=== PATIENT | male | born 1955 | race Caucasian/White ===

== ENCOUNTER 2019-01-20 18:19 | Emergency (ER) | payer OTHER ==
[2019-01-20 20:00] LABS: Basophils % (A) 0 %; Eosinophils # (A) 0.1 k/uL (0-0.7); Eosinophils % (A) 1 %; HCT 40.3 % (39.0-53.0); HGB 13.5 gm/dL (13.0-17.5); Lymphocytes % (A) 10 %; MCH 29.2 pg (25.0-35.0); MCHC 33.5 g/dL (31.0-37.0); MCV 86.9 fL (80.0-100.0); Mean Platelet Volume 6.5; Monocytes # (A) 0.4 k/uL (0-1.0); Monocytes % (A) 4 %; Neutrophils # (A) 8.9 k/uL (1.3-7.7); Neutrophils % (A) 85 %; Platelet Count 287 k/uL (150-450); RBC 4.63 m/uL (4.30-5.90); RDW 13.3 % (11.5-15.5); WBC 10.5 k/uL (3.8-10.6)
[2019-01-20 20:05] LABS: Amorphous Sediment,Urine Rare /hpf; Appearance,Urine Cloudy (Clear); Bilirubin,Urine Negative (Negative); Blood,Urine Trace (Negative); Color,Urine Yellow; Glucose,Urine (UA) Negative (Negative); Ketones,Urine Negative (Negative); Leukocyte Esterase,Urine Negative (Negative); Mucus,Urine Rare /hpf; Nitrite,Urine Negative (Negative); Protein,Urine Trace (Negative); Specific Gravity,Urine 1.013 (1.001-1.035); Urobilinogen,Urine <2.0 mg/dL (<2.0); WBC,Urine 1 /hpf (0-5)
[2019-01-20 20:09] LABS: ALT 24 U/L (21-72); AST 29 U/L (17-59); African American GFR (CKD) >90 (>60 ml/min/1.73 sqM); Albumin 4.4 g/dL (3.5-5.0); Alkaline Phosphatase 78 U/L (38-126); Anion Gap 9 mmol/L; Blood Urea Nitrogen 14 mg/dL (9-20); Calcium 8.8 mg/dL (8.4-10.2); Carbon Dioxide 26 mmol/L (22-30); Chloride 104 mmol/L (98-107); Glucose 103 mg/dL (74-99); Potassium 4.5 mmol/L (3.5-5.1); Sodium 139 mmol/L (137-145); Total Bilirubin 0.3 mg/dL (0.2-1.3); Total Protein 7.1 g/dL (6.3-8.2)
--- NOTE | 2019-01-20 21:11 | ED ---
Dizziness HPI - General Chief Complaint: Dizziness Stated Complaint: lightheaded/neck pain Time Seen by Provider: 01/20/19 21:10 Source: patient Mode of arrival: wheelchair Limitations: no limitations - History of Present Illness Initial Comments: Peter is a 62yo male with PMH of seizure disorder who presents to the ER today for evaluation of seizure aura. Patient reports that he has been out of his antiepileptic medications for approximately 3 weeks. He reports that due to insurance changes he had to get a new doctor he saw the doctor but reports he has not been able to get his medications filled at his pharmacy. He reports that this evening he was driving from his home to his oslof[place]-vhj[place] when he began feeling somewhat lightheaded and woozy. Patient reports he has felt like this before when he was about to have a seizure. He reports that he was less than a mile from his bkcfwm-gx[place]jxc[place] house so he got there and contacted his nraeexk-tn-ldx to bring him to the emergency department for evaluation. Patient's last seizure was a few months ago. He does not have frequent seizures. Patient states that he takes Dilantin and phenobarbital. Patient denies any fevers, chills, chest pain, palpitations, shortness of breath. He did not have a seizure he does not have any amnesia to the events of the afternoon. Patient is scheduled to establish care with a new neurologist on January 27. - Related Data Previous Rx's Medication Instructions Recorded Phenytoin Sodium Extended 200 mg PO BID #60 capsule 01/20/19 [Dilantin] Allergies Allergy/AdvReac Type Severity Reaction Status Date / Time No Known Allergies Allergy Verified 01/20/19 21:18 Review of Systems ROS Statement: Those systems with pertinent positive or pertinent negative responses have been documented in the HPI. ROS Other: All systems not noted in ROS Statement are negative. Past Medical History Past Medical History: Seizure Disorder History of Any Multi-Drug Resistant Organisms: None Reported Past Surgical History: No Surgical Hx Reported Past Psychological History: No Psychological Hx Reported Smoking Status: Never smoker Past Alcohol Use History: None Reported, Rare Past Drug Use History: None Reported General Exam - General Exam Comments Initial Comments: Physical Exam GENERAL: Patient is well-developed and well-nourished. Patient is nontoxic and well-hydrated and is in no distress. HENT: Normocephalic, Atraumatic. EYES: PERRL, EOMI PULMONARY: Unlabored respirations. No audible rales rhonchi or wheezing was noted. CARDIOVASCULAR: There is a regular rate and rhythm without any murmurs gallops or rubs. ABDOMEN: Soft and nontender with normal bowel sounds. SKIN: Skin is clear with no lesions or rashes and otherwise unremarkable. : Deferred NEUROLOGIC: Patient is alert and oriented x3. Moving all extremities spontaneously MUSCULOSKELETAL: Normal extremities with adequate strength and full range of motion. No lower extremity swelling or edema. No calf tenderness. PSYCHIATRIC: Normal psychiatric evaluation Limitations: no limitations Course Vital Signs 01/20/19 01/20/19 01/20/19 18:29 22:25 23:40 Temperature 98.2 F 97.8 F Pulse Rate 67 64 67 Respiratory 20 18 18 Rate Blood Pressure 189/96 201/111 185/109 O2 Sat by Pulse 97 97 96 Oximetry 01/21/19 00:12 Temperature 97.8 F Pulse Rate 64 Respiratory 18 Rate Blood Pressure 159/98 O2 Sat by Pulse 96 Oximetry EKG Findings - EKG Comments: EKG Findings:: EKG was obtained due to complaint of lightheadedness. EKG was obtained at 7:34 PM, rate is 68 rhythm is sinus there is normal axis there are normal intervals, MT 144, QRS 6, QT/QTc 438/465 there are no acute ST elevations or depressions is no evidence of acute ischemia or infarction. Medical Decision Making - Medical Decision Making The patient was seen and evaluated history is obtained from the patient and family member at bedside This 63-year-old gentleman with history of seizure disorder hypertension is currently been without medications for 3 weeks duration due to miscommunication between his new primary care provider and pharmacy Patient reports he began to feel an aura like he was could have a seizure today, he did not have a seizure. He reports he is feeling better now. He is requesting have a refill of his daily. States that he'll get his phenobarbital from his position as prescribed because he knows it is a controlled substance. First dose of Dilantin was ordered here in the emergency department a prescription was provided. Upon discharge patient was noted to be hypertensive. Patient will follow up with his primary care physician for refill on his antihypertensives and was well because he does not recall which medication he was on we do not have any record of it and I do not want to initiate new medications. Was treated with a single dose of oral clonidine and his blood pressure improved. - Lab Data Result diagrams: 01/20/19 19:39 01/20/19 19:39 Lab Results 01/20/19 01/20/19 01/20/19 Range/Units 19:39 19:39 19:40 WBC 10.5 (3.8-10.6) k/uL RBC 4.63 (4.30-5.90) m/uL Hgb 13.5 (13.0-17.5) gm/dL Hct 40.3 (39.0-53.0) % MCV 86.9 (80.0-100.0) fL MCH 29.2 (25.0-35.0) pg MCHC 33.5 (31.0-37.0) g/dL RDW 13.3 (11.5-15.5) % Plt Count 287 (150-450) k/uL Neutrophils % 85 % Lymphocytes % 10 % Monocytes % 4 % Eosinophils % 1 % Basophils % 0 % Neutrophils # 8.9 H (1.3-7.7) k/uL Lymphocytes # 1.0 (1.0-4.8) k/uL Monocytes # 0.4 (0-1.0) k/uL Eosinophils # 0.1 (0-0.7) k/uL Basophils # 0.0 (0-0.2) k/uL Sodium 139 (137-145) mmol/L Potassium 4.5 (3.5-5.1) mmol/L Chloride 104 (98-107) mmol/L Carbon Dioxide 26 (22-30) mmol/L Anion Gap 9 mmol/L BUN 14 (9-20) mg/dL Creatinine 0.91 (0.66-1.25) mg/dL Est GFR (CKD-EPI)AfAm >90 (>60 ml/min/1.73 sqM) Est GFR (CKD-EPI)NonAf 89 (>60 ml/min/1.73 sqM) Glucose 103 H (74-99) mg/dL Calcium 8.8 (8.4-10.2) mg/dL Total Bilirubin 0.3 (0.2-1.3) mg/dL AST 29 (17-59) U/L ALT 24 (21-72) U/L Alkaline Phosphatase 78 (38-126) U/L Total Protein 7.1 (6.3-8.2) g/dL Albumin 4.4 (3.5-5.0) g/dL Urine Color Yellow Urine Appearance Cloudy (Clear) Urine pH 7.0 (5.0-8.0) Ur Specific [place] 1.013 (1.001-1.035) Urine Protein Trace H (Negative) Urine Glucose (UA) Negative (Negative) Urine Ketones Negative (Negative) Urine Blood Trace H (Negative) Urine Nitrite Negative (Negative) Urine Bilirubin Negative (Negative) Urine Urobilinogen <2.0 (<2.0) mg/dL Ur Leukocyte Esterase Negative (Negative) Urine WBC 1 (0-5) /hpf Amorphous Sediment Rare H (None) /hpf Urine Mucus Rare H (None) /hpf Disposition Clinical Impression: Encounter for medication refill, HTN (hypertension) Disposition: HOME SELF-CARE Condition: Stable Instructions (If sedation given, give patient instructions): Phenytoin (By mouth) Prescriptions: Phenytoin Sodium Extended [Dilantin] 200 mg PO BID #60 capsule Is patient prescribed a controlled substance at d/c from ED?: No Referrals: Paul Nuñez MD [Primary Care Provider] - 1-2 days
[2019-01-20] MEDS ORDERED: PHENYTOIN SODIUM EXTENDED 100 MG CAP PO STA (21:39)
[2019-01-20] MEDS ORDERED: cloNIDine HCL 0.1 MG TAB PO STA (22:44)
[2019-01-20 22:58] VITALS: PULSE 64; RESP 18; TEMP 97.8
[2019-01-21 00:13] VITALS: BP 159/98
== END 2019-01-21 00:30 | disposition home or self-care (01) ==
LOC: EC 18:19
DX: Z76.0 Encounter for issue of repeat prescription (principal); I10 Essential (primary) hypertension; G40.909 Epilepsy, unspecified, not intractable, without status epilepticus
CPT/HCPCS: 36415; 80053; 81001; 85025; 93005; 99284

== ENCOUNTER 2019-06-11 09:50 | Emergency (ER) | payer OTHER ==
[2019-06-11 09:57] VITALS: RESP 18; TEMP 98.4
[2019-06-11] MEDS ORDERED: SODIUM CHLORIDE 0.9% 1,000 ML IV STA (10:07)
[2019-06-11] MEDS ORDERED: LORazepam 2 MG/ML INJ IV STA (10:07)
[2019-06-11] MEDS ORDERED: PHENYTOIN SODIUM INJ 1,000 MG in SODIUM CHLORIDE 0.9% 100 ML IVPB STA (10:09)
[2019-06-11] MEDS ORDERED: DIPH,PERTUS(ACELL)TETVAC-LF 0.5 ML VIAL IM ONE (10:13)
--- NOTE | 2019-06-11 10:14 | ED ---
Seizure HPI - General Chief Complaint: Seizure Stated Complaint: seizure Time Seen by Provider: 06/11/19 09:57 Source: patient, RN notes reviewed Mode of arrival: ambulatory Limitations: no limitations - History of Present Illness Initial Comments: 63-year-old male presented to emergency department via EMS for seizure at a restaurant. Patient reported to EMS that he has not had his medications in 3 weeks secondary to his physician retiring. Patient is unable to provide information to me at this time secondary to having current seizure. Patient is postictal. Patient reportedly was on Dilantin. Patient noted to have scalp laceration. No other obvious injuries. - Related Data Home Medications Medication Instructions Recorded Confirmed Lisinopril-Hctz 20-25 mg 1 tab PO DAILY 06/11/19 06/11/19 [Zestoretic 20-25] PHENobarbital 32.4 mg PO HS 06/11/19 06/11/19 Previous Rx's Medication Instructions Recorded Phenytoin Sodium Extended 200 mg PO BID #60 capsule 01/20/19 [Dilantin] Lisinopril [Zestril] 10 mg PO DAILY #30 tab 06/11/19 Phenytoin Sodium Extended 200 mg PO ONCE #120 capsule 06/11/19 [Dilantin] Allergies Allergy/AdvReac Type Severity Reaction Status Date / Time No Known Allergies Allergy Verified 06/11/19 10:08 Review of Systems ROS Statement: Those systems with pertinent positive or pertinent negative responses have been documented in the HPI. ROS Other: All systems not noted in ROS Statement are negative. Past Medical History Past Medical History: Seizure Disorder History of Any Multi-Drug Resistant Organisms: None Reported Past Surgical History: No Surgical Hx Reported Past Psychological History: No Psychological Hx Reported Smoking Status: Never smoker Past Alcohol Use History: None Reported, Rare Past Drug Use History: None Reported General Exam Limitations: no limitations General appearance: alert, in no apparent distress Head exam: Present: atraumatic, normocephalic. Absent: normal inspection (Laceration) Eye exam: Present: normal appearance, PERRL, EOMI. Absent: scleral icterus, conjunctival injection, periorbital swelling ENT exam: Present: normal exam, normal oropharynx, mucous membranes moist, TM's normal bilaterally Neck exam: Present: normal inspection, full ROM. Absent: tenderness, meningismus, lymphadenopathy Respiratory exam: Present: normal lung sounds bilaterally. Absent: respiratory distress, wheezes, rales, rhonchi, stridor Cardiovascular Exam: Present: normal rhythm, tachycardia, normal heart sounds. Absent: regular rate, systolic murmur, diastolic murmur, rubs, gallop, clicks GI/Abdominal exam: Present: soft, normal bowel sounds. Absent: distended, ten derness, guarding, rebound, rigid Neurological exam: Present: other (Patient was actively seizing, now postictal). Absent: alert, oriented X3, CN II-XII intact Skin exam: Present: warm, dry, intact, normal color. Absent: rash Course Vital Signs 06/11/19 06/11/19 06/11/19 09:52 10:15 12:00 Temperature 98.4 F Pulse Rate 131 H Respiratory 18 Rate Blood Pressure 181/134 200/88 145/82 O2 Sat by Pulse 98 Oximetry 06/11/19 12:26 Temperature Pulse Rate 88 Respiratory 18 Rate Blood Pressure 147/83 O2 Sat by Pulse 97 Oximetry Procedures - Laceration Laceration #1 Consent Obtained: verbal consent Indication: laceration Site: scalp Size (cm): 2 Description: linear Depth: simple, single layer Size of Sutures: other (Dermal bhavik) Number of Sutures: 3 Patient Tolerated Procedure: well, no complications Medical Decision Making - Medical Decision Making 63-year-old male presented for seizure. CT is unremarkable as far as endocrine hemorrhage or mass effect. No cervical fracture. Labs are consistent with s eizure. Patient has been off his medications will be refilled for Dilantin, blood pressure medication. He'll follow-up with Dr. Toribio his neurologist return parameters were discussed. - Lab Data Result diagrams: 06/11/19 10:05 06/11/19 10:05 Lab Results 06/11/19 06/11/19 Range/Units 10:05 10:05 WBC 12.2 H (3.8-10.6) k/uL RBC 5.07 (4.30-5.90) m/uL Hgb 15.6 (13.0-17.5) gm/dL Hct 47.0 (39.0-53.0) % MCV 92.7 (80.0-100.0) fL MCH 30.7 (25.0-35.0) pg MCHC 33.1 (31.0-37.0) g/dL RDW 12.7 (11.5-15.5) % Plt Count 422 (150-450) k/uL Neutrophils % 71 % Lymphocytes % 22 % Monocytes % 4 % Eosinophils % 1 % Basophils % 1 % Neutrophils # 8.6 H (1.3-7.7) k/uL Lymphocytes # 2.6 (1.0-4.8) k/uL Monocytes # 0.5 (0-1.0) k/uL Eosinophils # 0.1 (0-0.7) k/uL Basophils # 0.1 (0-0.2) k/uL Sodium 140 (137-145) mmol/L Potassium 4.6 (3.5-5.1) mmol/L Chloride 98 (98-107) mmol/L Carbon Dioxide 15 L (22-30) mmol/L Anion Gap 27 mmol/L BUN 13 (9-20) mg/dL Creatinine 1.32 H (0.66-1.25) mg/dL Est GFR (CKD-EPI)AfAm 66 (>60 ml/min/1.73 sqM) Est GFR (CKD-EPI)NonAf 57 (>60 ml/min/1.73 sqM) Glucose 167 H (74-99) mg/dL Calcium 10.6 H (8.4-10.2) mg/dL Total Bilirubin 0.6 (0.2-1.3) mg/dL AST 31 (17-59) U/L ALT 25 (21-72) U/L Alkaline Phosphatase 76 (38-126) U/L Total Protein 8.3 H (6.3-8.2) g/dL Albumin 5.3 H (3.5-5.0) g/dL - EKG Data EKG Comments: EKG interpreted by me at time: 14 normal sinus rhythm rate of 96 OR 166 QRS 110 QT/QTC 378/477 Disposition Clinical Impression: Generalized seizure, Scalp laceration Disposition: HOME SELF-CARE Condition: Stable Instructions (If sedation given, give patient instructions): Recurrent Seizures in Adults (ED) Additional Instructions: Please return to the Emergency Department if symptoms worsen or any other concerns. Prescriptions: Phenytoin Sodium Extended [Dilantin] 200 mg PO ONCE #120 capsule Lisinopril [Zestril] 10 mg PO DAILY #30 tab Is patient prescribed a controlled substance at d/c from ED?: No Referrals: Paul Nuñez MD [Primary Care Provider] - 1-2 days Time of Disposition: 12:36
[2019-06-11 10:35] LABS: Basophils # (A) 0.1 k/uL (0-0.2); Basophils % (A) 1 %; Eosinophils # (A) 0.1 k/uL (0-0.7); Eosinophils % (A) 1 %; HGB 15.6 gm/dL (13.0-17.5); Lymphocytes # (A) 2.6 k/uL (1.0-4.8); Lymphocytes % (A) 22 %; MCH 30.7 pg (25.0-35.0); MCHC 33.1 g/dL (31.0-37.0); MCV 92.7 fL (80.0-100.0); Monocytes # (A) 0.5 k/uL (0-1.0); Monocytes % (A) 4 %; Neutrophils # (A) 8.6 k/uL (1.3-7.7); Neutrophils % (A) 71 %; Platelet Count 422 k/uL (150-450); RBC 5.07 m/uL (4.30-5.90); RDW 12.7 % (11.5-15.5); WBC 12.2 k/uL (3.8-10.6)
[2019-06-11 10:45] LABS: Albumin 5.3 g/dL (3.5-5.0); Calcium 10.6 mg/dL (8.4-10.2); Potassium 4.6 mmol/L (3.5-5.1); Total Bilirubin 0.6 mg/dL (0.2-1.3); Total Protein 8.3 g/dL (6.3-8.2)
--- NOTE | 2019-06-11 11:27 | CT ---
EXAMINATION TYPE: CT brain viki huntley con DATE OF EXAM: 06/11/2019 COMPARISON: None HISTORY: seizure. posterior head laceration CT DLP: 1363.1 mGycm, Automated exposure control for dose reduction was used. CONTRAST: None CT of the brain is performed utilizing 3 mm thick sections through the posterior fossa and 3 mm thick sections through the remaining calvarium. Study is performed within 24 hours of arrival to the hospital. No abnormal hyperdensity is present to suggest an acute intracranial hemorrhage. No mass lesion is evident. No acute infarcts are evident. Ventricles and sulci are appropriate for the patient age. Paranasal sinuses and mastoid air cells within the yttah-zx-ieur are clear. Fractures are evident. There is soft tissue swelling over the right parietal vertex. IMPRESSIONS: 1. No acute intracranial process. 2. Superficial soft tissue swelling right parietal vertex. CT cervical spine. COMPARISON: None CT of the cervical spine is performed in the axial plane at 2 mm thick sections. Reconstructed image s in the coronal, and sagittal plane are reviewed on the computer. No acute fractures are evident. Vertebral body alignment is normal. Disc space narrowing is present C3-4 and C6-7. Vertebral body heights are preserved. No spinal canal stenosis is evident. Multilevel foraminal narrowing from uncovertebral joint hypertrophy is present. This may be more emelyn re in the upper cervical spine especially C3-4. Foraminal narrowing on the right at C2-3 appears emelyn re right C4-5 foraminal stenosis is present milder foraminal narrowing is in the lower cervical spine . IMPRESSIONS: 1. No acute osseous abnormality. 2. Degenerative changes including foraminal stenosis and loss of disc height discussed above
[2019-06-11 13:24] VITALS: BP 158/88; PULSE 89
== END 2019-06-11 13:24 | disposition home or self-care (01) ==
LOC: EC 09:50
DX: S01.01XA Laceration without foreign body of scalp, initial encounter (principal); G40.409 Other generalized epilepsy and epileptic syndromes, not intractable, without status epilepticus; Z23 Encounter for immunization; Z79.899 Other long term (current) drug therapy
CPT/HCPCS: 99284; 12001; 96365; 96375; 96361 ×2; 90471; 36415; 93005; 80053; 85025; 72125; 70450; 90715; J2060; J1165

== ENCOUNTER 2019-08-04 10:35 | Emergency (ER) | payer OTHER ==
[2019-08-04] MEDS ORDERED: SODIUM CHLORIDE 0.9% 500 ML 500 ML IV STA (11:09)
[2019-08-04] MEDS ORDERED: PENICILLIN V POTASSIUM 250 MG TAB PO STA (11:10)
--- NOTE | 2019-08-04 11:10 | ED ---
General Adult HPI - General Chief complaint: Nausea/Vomiting/Diarrhea Stated complaint: abd pain Time Seen by Provider: 08/04/19 10:48 Source: patient, RN notes reviewed, old records reviewed Mode of arrival: ambulatory Limitations: no limitations - History of Present Illness Initial comments: 63-year-old male patient past medical history of hypertension, seizure disorder presents to ED for chief complaint of nausea for the last 3 days. Denies any abdominal pain. Patient also reports some dental pain. Reports that he has poor dentition. Denies any chest pain or shortness of breath. Denies any complaints at this time. Denies any diarrhea. Systemic: Pt denies fatigue, fever/chills, rash. Pt denies weakness, night sweats, weight loss. Neuro: Pt denies headache, visual disturbances, syncope or pre-syncope. HEENT: Pt denies ocular discharge or irritation, otalgia, rhinorrhea, pharyngitis or notable lymphadenopathy. Cardiopulmonary: Pt denies chest pain, SOB, heart palpitations, dyspnea on exertion. Abdominal/GI: Pt denies abdominal pain, v/d. : Pt denies dysuria, burning w/ urination, frequency/urgency. Denies new onset urinary or bowel incontinence. MSK: Pt denies myalgia, loss of strength or function in extremities. Neuro: Pt denies new onset weakness, paresthesias. - Related Data Home Medications Medication Instructions Recorded Confirmed Lisinopril-Hctz 20-25 mg 1 tab PO DAILY 06/11/19 06/11/19 [Zestoretic 20-25] RX: PHENobarbital 32.4 mg PO HS 06/11/19 06/11/19 Previous Rx's Medication Instructions Recorded Phenytoin Sodium Extended 200 mg PO BID #60 capsule 01/20/19 [Dilantin] Phenytoin Sodium Extended 200 mg PO ONCE #120 capsule 06/11/19 [Dilantin] RX: Lisinopril [Zestril] 10 mg PO DAILY #30 tab 06/11/19 RX: Penicillin V Potassium [Pen 500 mg PO QID 7 Days #28 tablet 08/04/19 Vee K] Allergies Allergy/AdvReac Type Severity Reaction Status Date / Time No Known Allergies Allergy Verified 08/04/19 10:46 Review of Systems ROS Statement: Those systems with pertinent positive or pertinent negative responses have been documented in the HPI. ROS Other: All systems not noted in ROS Statement are negative. Past Medical History Past Medical History: Hypertension, Seizure Disorder History of Any Multi-Drug Resistant Organisms: None Reported Past Surgical History: No Surgical Hx Reported Past Psychological History: No Psychological Hx Reported Smoking Status: Never smoker Past Alcohol Use History: Rare Past Drug Use History: None Reported General Exam - General Exam Comments Initial Comments: Constitutional: NAD, AOX3, Pt has pleasant affect. HEENT: NC/AT, trachea midline, neck supple, no lymphadenopathy. Posterior pharynx non erythematous, without exudates. External ears appear normal, without discharge. Mucous membranes moist. Eyes PERRLA, EOM intact. There is no scleral icterus. No pallor noted. Poor dentition noted, mild erythema to gum on left lower jaw region. No drainage, no abscess. Cardiopulmonary: RRR, no murmurs, rubs or gallops, no JVD noted. Lungs CTAB in anterior and posterior barbosa. No peripheral edema. Abdominal exam: Abdomen soft and non-distended. Abdomen non-tender to palpation in all 4 quadrants. Bowel sounds active in LLQ. No hepatosplenomegaly. No ecchymosis Neuro: CN II-XII grossly intact. No nuchal rigidity. No raccon eyes, no grissom sign, no hemotympanum. No cervical spinal tenderness. MSK: No posterior calf tenderness bilaterally, homans sign negative bilaterally. Posterior tibialis and radial pulse +2 bilaterally. Sensation intact in upper and lower extremities. Full active ROM in upper and lower extremities, 5/5 stregnth. Limitations: no limitations Course Vital Signs 08/04/19 08/04/19 08/04/19 10:43 10:46 12:39 Temperature 98.1 F Pulse Rate 89 82 Respiratory 18 16 Rate Blood Pressure 184/113 194/103 191/111 O2 Sat by Pulse 97 95 Oximetry 08/04/19 12:50 Temperature Pulse Rate Respiratory Rate Blood Pressure 144/90 O2 Sat by Pulse Oximetry Medical Decision Making - Medical Decision Making 63-year-old male patient past medical history of hypertension, seizure disorder presents to ED for chief complaint of nausea for the last 3 days. Denies any abdominal pain. Patient also reports some dental pain. Reports that he has poor dentition. Denies any chest pain or shortness of breath. Denies any complaints at this time. Denies any diarrhea. Patient vital signs initially displayed hypertension. Denies any symptoms. Patient was administered antihypertensive. Physical exam splayed a mild amount of gum erythema along left lower jaw region. No drainage, no abscess. Laboratory investigations are non-impressive. KUB displayed nonspecific bowel gas pattern. EKG nonischemic. She feeling much improved with Zofran. Tolerating oral intake. Patient will be discharged with penicillin for dental infection, Zofran. Will follow up with primary care provider will return to ER if condition worsens. Case discussed with Dr. Christine. - Lab Data Result diagrams: 08/04/19 11:24 08/04/19 11:24 Lab Results 08/04/19 08/04/19 08/04/19 Range/Units 11:24 11:24 11:24 WBC 8.4 (3.8-10.6) k/uL RBC 4.83 (4.30-5.90) m/uL Hgb 14.5 (13.0-17.5) gm/dL Hct 42.2 (39.0-53.0) % MCV 87.3 D (80.0-100.0) fL MCH 29.9 (25.0-35.0) pg MCHC 34.3 (31.0-37.0) g/dL RDW 12.4 (11.5-15.5) % Plt Count 317 (150-450) k/uL Neutrophils % 75 % Lymphocytes % 17 % Monocytes % 6 % Eosinophils % 1 % Basophils % 0 % Neutrophils # 6.3 (1.3-7.7) k/uL Lymphocytes # 1.4 (1.0-4.8) k/uL Monocytes # 0.5 (0-1.0) k/uL Eosinophils # 0.1 (0-0.7) k/uL Basophils # 0.0 (0-0.2) k/uL Sodium 137 (137-145) mmol/L Potassium 3.8 (3.5-5.1) mmol/L Chloride 101 (98-107) mmol/L Carbon Dioxide 30 (22-30) mmol/L Anion Gap 6 mmol/L BUN 15 (9-20) mg/dL Creatinine 0.90 (0.66-1.25) mg/dL Est GFR (CKD-EPI)AfAm >90 (>60 ml/min/1.73 sqM) Est GFR (CKD-EPI)NonAf 90 (>60 ml/min/1.73 sqM) Glucose 116 H (74-99) mg/dL Plasma Lactic Acid Chai 0.9 (0.7-2.0) mmol/L Calcium 9.5 (8.4-10.2) mg/dL Total Bilirubin 0.5 (0.2-1.3) mg/dL AST 24 (17-59) U/L ALT 19 (4-49) U/L Alkaline Phosphatase 90 (38-126) U/L Troponin I (0.000-0.034) ng/mL Total Protein 7.0 (6.3-8.2) g/dL Albumin 4.4 (3.5-5.0) g/dL Lipase 84 (23-300) U/L Urine Color Urine Appearance (Clear) Urine pH (5.0-8.0) Ur Specific [place] (1.001-1.035) Urine Protein (Negative) Urine Glucose (UA) (Negative) Urine Ketones (Negative) Urine Blood (Negative) Urine Nitrite (Negative) Urine Bilirubin (Negative) Urine Urobilinogen (<2.0) mg/dL Ur Leukocyte Esterase (Negative) Urine RBC (0-5) /hpf Urine WBC (0-5) /hpf Amorphous Sediment (None) /hpf Urine Mucus (None) /hpf 08/04/19 08/04/19 Range/Units 11:24 11:31 WBC (3.8-10.6) k/uL RBC (4.30-5.90) m/uL Hgb (13.0-17.5) gm/dL Hct (39.0-53.0) % MCV (80.0-100.0) fL MCH (25.0-35.0) pg MCHC (31.0-37.0) g/dL RDW (11.5-15.5) % Plt Count (150-450) k/uL Neutrophils % % Lymphocytes % % Monocytes % % Eosinophils % % Basophils % % Neutrophils # (1.3-7.7) k/uL Lymphocytes # (1.0-4.8) k/uL Monocytes # (0-1.0) k/uL Eosinophils # (0-0.7) k/uL Basophils # (0-0.2) k/uL Sodium (137-145) mmol/L Potassium (3.5-5.1) mmol/L Chloride (98-107) mmol/L Carbon Dioxide (22-30) mmol/L Anion Gap mmol/L BUN (9-20) mg/dL Creatinine (0.66-1.25) mg/dL Est GFR (CKD-EPI)AfAm (>60 ml/min/1.73 sqM) Est GFR (CKD-EPI)NonAf (>60 ml/min/1.73 sqM) Glucose (74-99) mg/dL Plasma Lactic Acid Chai (0.7-2.0) mmol/L Calcium (8.4-10.2) mg/dL Total Bilirubin (0.2-1.3) mg/dL AST (17-59) U/L ALT (4-49) U/L Alkaline Phosphatase (38-126) U/L Troponin I <0.012 (0.000-0.034) ng/mL Total Protein (6.3-8.2) g/dL Albumin (3.5-5.0) g/dL Lipase (23-300) U/L Urine Color Yellow Urine Appearance Cloudy (Clear) Urine pH 7.0 (5.0-8.0) Ur Specific [place] 1.013 (1.001-1.035) Urine Protein 1+ H (Negative) Urine Glucose (UA) Negative (Negative) Urine Ketones Negative (Negative) Urine Blood Small H (Negative) Urine Nitrite Negative (Negative) Urine Bilirubin Negative (Negative) Urine Urobilinogen <2.0 (<2.0) mg/dL Ur Leukocyte Esterase Negative (Negative) Urine RBC 2 (0-5) /hpf Urine WBC 1 (0-5) /hpf Amorphous Sediment Rare H (None) /hpf Urine Mucus Rare H (None) /hpf Disposition Clinical Impression: Nausea, Dental infection Disposition: HOME SELF-CARE Condition: Stable Instructions (If sedation given, give patient instructions): Acute Nausea and Vomiting (ED) Additional Instructions: Follow-up with primary care provider tomorrow and dentist as soon as possible. Take antibiotics as directed. Monitor blood pressure at home. Return to ER if condition worsens in any way. Use Zofran as needed for nausea. Prescriptions: RX: Penicillin V Potassium [Pen Vee K] 500 mg PO QID 7 Days #28 tablet Is patient prescribed a controlled substance at d/c from ED?: No Referrals: Paul Nuñez MD [Primary Care Provider] - 1-2 days
[2019-08-04] MEDS ORDERED: ONDANSETRON 4 MG/2 ML VIAL IVP STA (11:29)
[2019-08-04 11:41] LABS: Basophils % (A) 0 %; Eosinophils # (A) 0.1 k/uL (0-0.7); Eosinophils % (A) 1 %; HCT 42.2 % (39.0-53.0); HGB 14.5 gm/dL (13.0-17.5); Lymphocytes # (A) 1.4 k/uL (1.0-4.8); Lymphocytes % (A) 17 %; MCH 29.9 pg (25.0-35.0); MCHC 34.3 g/dL (31.0-37.0); Mean Platelet Volume 6.8; Monocytes # (A) 0.5 k/uL (0-1.0); Monocytes % (A) 6 %; Neutrophils # (A) 6.3 k/uL (1.3-7.7); Neutrophils % (A) 75 %; Platelet Count 317 k/uL (150-450); RBC 4.83 m/uL (4.30-5.90); RDW 12.4 % (11.5-15.5); WBC 8.4 k/uL (3.8-10.6)
[2019-08-04 11:53] LABS: MCV 87.3 fL (80.0-100.0)
[2019-08-04 11:55] LABS: ALT 19 U/L (4-49); AST 24 U/L (17-59); African American GFR (CKD) >90 (>60 ml/min/1.73 sqM); Albumin 4.4 g/dL (3.5-5.0); Alkaline Phosphatase 90 U/L (38-126); Anion Gap 6 mmol/L; Blood Urea Nitrogen 15 mg/dL (9-20); Calcium 9.5 mg/dL (8.4-10.2); Carbon Dioxide 30 mmol/L (22-30); Chloride 101 mmol/L (98-107); Glucose 116 mg/dL (74-99); Non-African American GFR(CKD) 90 (>60 ml/min/1.73 sqM); Potassium 3.8 mmol/L (3.5-5.1); Sodium 137 mmol/L (137-145); Total Bilirubin 0.5 mg/dL (0.2-1.3)
[2019-08-04] MEDS ORDERED: LABETALOL 5 MG/ML VIAL MDV IVP STA (12:05)
[2019-08-04 12:11] LABS: Amorphous Sediment,Urine Rare /hpf; Appearance,Urine Cloudy (Clear); Bilirubin,Urine Negative (Negative); Blood,Urine Small (Negative); Color,Urine Yellow; Glucose,Urine (UA) Negative (Negative); Ketones,Urine Negative (Negative); Leukocyte Esterase,Urine Negative (Negative); Mucus,Urine Rare /hpf; Nitrite,Urine Negative (Negative); Protein,Urine 1+ (Negative); RBC,Urine 2 /hpf (0-5); Specific Gravity,Urine 1.013 (1.001-1.035); Urobilinogen,Urine <2.0 mg/dL (<2.0); WBC,Urine 1 /hpf (0-5)
--- NOTE | 2019-08-04 12:11 | XR ---
KUB HISTORY: Abdominal pain Frontal KUB and 2 images Lung bases are clear. There is no evident bowel obstruction or pneumoperitoneum. Degenerative disc ch anges are present visualized spine. There are overlying cardiac leads. No evident pathologic calcific ation. Probable vascular calcifications within the pelvis. IMPRESSION: Nonspecific bowel gas pattern.
[2019-08-04] MEDS ORDERED: ONDANSETRON 4 MG ODT STARTER PACK 2 TAB BTL PO STA (13:50)
[2019-08-04 14:08] VITALS: BP 170/96; PULSE 71; RESP 20; TEMP 98.4
--- NOTE | 2019-08-04 14:49 | ED ---
Medical Decision Making - Medical Decision Making Ventricular rate 81, Trental 146, QRS 100, QT/QTC 372/432. Normal sinus rhythm, possible inferior infarct age [place]. Abnormal EKG. No concern for acute ischemia at this time. - Lab Data Result diagrams: 08/04/19 11:24 08/04/19 11:24 Lab Results 08/04/19 08/04/19 08/04/19 Range/Units 11:24 11:24 11:24 WBC 8.4 (3.8-10.6) k/uL RBC 4.83 (4.30-5.90) m/uL Hgb 14.5 (13.0-17.5) gm/dL Hct 42.2 (39.0-53.0) % MCV 87.3 D (80.0-100.0) fL MCH 29.9 (25.0-35.0) pg MCHC 34.3 (31.0-37.0) g/dL RDW 12.4 (11.5-15.5) % Plt Count 317 (150-450) k/uL Neutrophils % 75 % Lymphocytes % 17 % Monocytes % 6 % Eosinophils % 1 % Basophils % 0 % Neutrophils # 6.3 (1.3-7.7) k/uL Lymphocytes # 1.4 (1.0-4.8) k/uL Monocytes # 0.5 (0-1.0) k/uL Eosinophils # 0.1 (0-0.7) k/uL Basophils # 0.0 (0-0.2) k/uL Sodium 137 (137-145) mmol/L Potassium 3.8 (3.5-5.1) mmol/L Chloride 101 (98-107) mmol/L Carbon Dioxide 30 (22-30) mmol/L Anion Gap 6 mmol/L BUN 15 (9-20) mg/dL Creatinine 0.90 (0.66-1.25) mg/dL Est GFR (CKD-EPI)AfAm >90 (>60 ml/min/1.73 sqM) Est GFR (CKD-EPI)NonAf 90 (>60 ml/min/1.73 sqM) Glucose 116 H (74-99) mg/dL Plasma Lactic Acid Chai 0.9 (0.7-2.0) mmol/L Calcium 9.5 (8.4-10.2) mg/dL Total Bilirubin 0.5 (0.2-1.3) mg/dL AST 24 (17-59) U/L ALT 19 (4-49) U/L Alkaline Phosphatase 90 (38-126) U/L Troponin I (0.000-0.034) ng/mL Total Protein 7.0 (6.3-8.2) g/dL Albumin 4.4 (3.5-5.0) g/dL Lipase 84 (23-300) U/L Urine Color Urine Appearance (Clear) Urine pH (5.0-8.0) Ur Specific [place] (1.001-1.035) Urine Protein (Negative) Urine Glucose (UA) (Negative) Urine Ketones (Negative) Urine Blood (Negative) Urine Nitrite (Negative) Urine Bilirubin (Negative) Urine Urobilinogen (<2.0) mg/dL Ur Leukocyte Esterase (Negative) Urine RBC (0-5) /hpf Urine WBC (0-5) /hpf Amorphous Sediment (None) /hpf Urine Mucus (None) /hpf 08/04/19 08/04/19 Range/Units 11:24 11:31 WBC (3.8-10.6) k/uL RBC (4.30-5.90) m/uL Hgb (13.0-17.5) gm/dL Hct (39.0-53.0) % MCV (80.0-100.0) fL MCH (25.0-35.0) pg MCHC (31.0-37.0) g/dL RDW (11.5-15.5) % Plt Count (150-450) k/uL Neutrophils % % Lymphocytes % % Monocytes % % Eosinophils % % Basophils % % Neutrophils # (1.3-7.7) k/uL Lymphocytes # (1.0-4.8) k/uL Monocytes # (0-1.0) k/uL Eosinophils # (0-0.7) k/uL Basophils # (0-0.2) k/uL Sodium (137-145) mmol/L Potassium (3.5-5.1) mmol/L Chloride (98-107) mmol/L Carbon Dioxide (22-30) mmol/L Anion Gap mmol/L BUN (9-20) mg/dL Creatinine (0.66-1.25) mg/dL Est GFR (CKD-EPI)AfAm (>60 ml/min/1.73 sqM) Est GFR (CKD-EPI)NonAf (>60 ml/min/1.73 sqM) Glucose (74-99) mg/dL Plasma Lactic Acid Chai (0.7-2.0) mmol/L Calcium (8.4-10.2) mg/dL Total Bilirubin (0.2-1.3) mg/dL AST (17-59) U/L ALT (4-49) U/L Alkaline Phosphatase (38-126) U/L Troponin I <0.012 (0.000-0.034) ng/mL Total Protein (6.3-8.2) g/dL Albumin (3.5-5.0) g/dL Lipase (23-300) U/L Urine Color Yellow Urine Appearance Cloudy (Clear) Urine pH 7.0 (5.0-8.0) Ur Specific [place] 1.013 (1.001-1.035) Urine Protein 1+ H (Negative) Urine Glucose (UA) Negative (Negative) Urine Ketones Negative (Negative) Urine Blood Small H (Negative) Urine Nitrite Negative (Negative) Urine Bilirubin Negative (Negative) Urine Urobilinogen <2.0 (<2.0) mg/dL Ur Leukocyte Esterase Negative (Negative) Urine RBC 2 (0-5) /hpf Urine WBC 1 (0-5) /hpf Amorphous Sediment Rare H (None) /hpf Urine Mucus Rare H (None) /hpf Disposition Clinical Impression: Nausea, Dental infection Disposition: HOME SELF-CARE Condition: Stable Instructions (If sedation given, give patient instructions): Acute Nausea and Vomiting (ED) Additional Instructions: Follow-up with primary care provider tomorrow and dentist as soon as possible. Take antibiotics as directed. Monitor blood pressure at home. Return to ER if condition worsens in any way. Use Zofran as needed for nausea. Prescriptions: Penicillin V Potassium [Pen Vee K] 500 mg PO QID 7 Days #28 tablet Is patient prescribed a controlled substance at d/c from ED?: No Referrals: Paul Nuñez MD [Primary Care Provider] - 1-2 days
== END 2019-08-04 14:08 | disposition home or self-care (01) ==
LOC: EC 10:35
DX: K04.7 Periapical abscess without sinus (principal); R11.0 Nausea; R10.9 Unspecified abdominal pain; I10 Essential (primary) hypertension; G40.909 Epilepsy, unspecified, not intractable, without status epilepticus; Z79.899 Other long term (current) drug therapy
CPT/HCPCS: 36415; 93005; 80053; 83605; 83690; 84484; 85025; 81001; 74018; 96374; 96375; 96361; 99284; J2405; S0119

== ENCOUNTER 2019-08-06 22:43 | Emergency (ER) | payer OTHER ==
[2019-08-06 22:48] VITALS: TEMP 99.2
--- NOTE | 2019-08-06 23:01 | ED ---
Nausea/Vomiting/Diarrhea HPI - General Chief complaint: Nausea/Vomiting/Diarrhea Stated complaint: Nausea Time Seen by Provider: 08/06/19 22:53 Source: patient, family Mode of arrival: ambulatory Limitations: no limitations - History of Present Illness Initial comments: Peter is a pleasant 63-year-old gentleman who returns to the emergency department today for reevaluation of nausea. Patient reports he's been experiencing some nausea intermittently for the past week. He was seen and evaluated earlier this week at which time labs and x-ray were unremarkable. He is treated with Zofran which he reports completely resolves his symptoms however he was not given a prescription. Patient states that he continues to feel nauseated which is worse after eating but he has not had any episodes of vomiting or diarrhea. He denies any abdominal pain or discomfort. He states he still been eating and drinking well and is in concern that he is dehydrated. She denies any associated chest pain palpitations shortness of breath lightheadedness or urinary symptoms. - Related Data Home Medications Medication Instructions Recorded Confirmed Lisinopril-Hctz 20-25 mg 1 tab PO DAILY 06/11/19 06/11/19 [Zestoretic 20-25] PHENobarbital 32.4 mg PO HS 06/11/19 06/11/19 Previous Rx's Medication Instructions Recorded Phenytoin Sodium Extended 200 mg PO BID #60 capsule 01/20/19 [Dilantin] Lisinopril [Zestril] 10 mg PO DAILY #30 tab 06/11/19 Phenytoin Sodium Extended 200 mg PO ONCE #120 capsule 06/11/19 [Dilantin] Penicillin V Potassium [Pen Vee K] 500 mg PO QID 7 Days #28 tablet 08/04/19 Ondansetron [Zofran ODT] 4 mg PO Q8HR #12 tab 08/06/19 Allergies Allergy/AdvReac Type Severity Reaction Status Date / Time No Known Allergies Allergy Verified 08/06/19 22:48 Review of Systems ROS Statement: Those systems with pertinent positive or pertinent negative responses have been documented in the HPI. ROS Other: All systems not noted in ROS Statement are negative. Past Medical History Past Medical History: Hypertension, Seizure Disorder History of Any Multi-Drug Resistant Organisms: None Reported Past Surgical History: No Surgical Hx Reported Past Psychological History: No Psychological Hx Reported Smoking Status: Never smoker Past Alcohol Use History: Rare Past Drug Use History: None Reported General Exam - General Exam Comments Initial Comments: Physical Exam GENERAL: Patient is well-developed and well-nourished. Patient is nontoxic and well-hydrated and is in no distress. HENT: Normocephalic, Atraumatic. EYES: PERRL, EOMI PULMONARY: Unlabored respirations. CARDIOVASCULAR: RRR Warm and well perfused extremities ABDOMEN: Soft, nontender, nondistended Normal active bowel sounds No masses SKIN: No rashes or bruising : Deferred NEUROLOGIC: Alert and oriented Normal speech Normal gait MUSCULOSKELETAL: Moving all extremities with no apparent injury PSYCHIATRIC: No SI/HI Limitations: no limitations Course Vital Signs 08/06/19 08/06/19 22:44 23:38 Temperature 99.2 F Pulse Rate 84 74 Respiratory 18 20 Rate Blood Pressure 187/94 170/87 O2 Sat by Pulse 99 97 Oximetry Medical Decision Making - Medical Decision Making She was seen and evaluated, history is obtained from the patient, family member at bedside and review of medical record This 63-year-old male who reports intermittent nausea but has been able to eat and drink his usual diet. Patient was treated with Zofran with resolution of his symptoms. A repeat starter pack for Zofran will be given and patient will be prescribed Zofran. Patient was advised to follow-up with his primary care physician for reevaluation and possible referral to gastroenterology for any persistent symptoms. Disposition Clinical Impression: Nausea Disposition: HOME SELF-CARE Instructions (If sedation given, give patient instructions): Acute Nausea and Vomiting (ED) Prescriptions: Ondansetron [Zofran ODT] 4 mg PO Q8HR #12 tab Is patient prescribed a controlled substance at d/c from ED?: No Referrals: Paul Nuñez MD [Primary Care Provider] - 1-2 days
[2019-08-06] MEDS ORDERED: ONDANSETRON 4 MG ODT STARTER PACK 2 TAB BTL PO STA (23:24)
[2019-08-06 23:39] VITALS: BP 170/87; PULSE 74; RESP 20
== END 2019-08-06 23:39 | disposition home or self-care (01) ==
LOC: EC 22:43
DX: R11.0 Nausea (principal); Z76.0 Encounter for issue of repeat prescription; I10 Essential (primary) hypertension; G40.909 Epilepsy, unspecified, not intractable, without status epilepticus; Z79.899 Other long term (current) drug therapy
CPT/HCPCS: 99283; S0119

== ENCOUNTER 2020-10-25 18:15 | Inpatient (IN) | payer MEDICARE, OTHER ==
[2020-10-25 18:25] LABS: Glucose,Whole Blood 106 mg/dL (75-99)
[2020-10-25 18:39] LABS: Basophils % (A) 0 %; Eosinophils # (A) 0.1 k/uL (0-0.7); Eosinophils % (A) 1 %; HCT 40.6 % (39.0-53.0); HGB 14.4 gm/dL (13.0-17.5); Lymphocytes # (A) 1.9 k/uL (1.0-4.8); Lymphocytes % (A) 16 %; MCH 31.4 pg (25.0-35.0); MCHC 35.5 g/dL (31.0-37.0); MCV 88.4 fL (80.0-100.0); Monocytes # (A) 0.6 k/uL (0-1.0); Monocytes % (A) 5 %; Neutrophils # (A) 9.1 k/uL (1.3-7.7); Neutrophils % (A) 77 %; Platelet Count 280 k/uL (150-450); RBC 4.59 m/uL (4.30-5.90); RDW 12.8 % (11.5-15.5); WBC 11.8 k/uL (3.8-10.6)
--- NOTE | 2020-10-25 18:41 | ED ---
General Adult HPI - General Chief complaint: Weakness Stated complaint: Hypertension Time Seen by Provider: 10/25/20 18:22 Source: EMS Mode of arrival: EMS Limitations: no limitations - History of Present Illness Initial comments: Dictation was produced using [employer] dictation software. please excuse any grammatical, word or spelling errors. This patient was cared for during a federal and state declared state of emergency secondary to Covid 19 Chief Complaint: 65-year-old male past medical history of hypertension seizure disorder presents with facial weakness, slurred speech and dysarthria since 11 yesterday. History of Present Illness: Is a 65-year-old male who presents with strokelike symptoms. He states that his symptoms began at 11 AM yesterday. Today he was at his primary care physician's office who then sent patient here to the emergency department for strokelike symptoms. Patient denies any headache. He states that he has facial weakness and facial numbness to his left lower face. Denies any extremity symptoms. He also notes that his speech is slurred. The ROS documented in this emergency department record has been reviewed and confirmed by me. Those systems with pertinent positive or negative responses have been documented in the HPI. All other systems are other negative and/or noncontributory. PHYSICAL EXAM: General Impression: Alert and oriented x3, not in acute distress HEENT: Normocephalic atraumatic, extra-ocular movements intact, pupils equal and reactive to light bilaterally, mucous membranes moist. Cardiovascular: Heart regular rate and rhythm Chest: Able to complete full sentences, no retractions, no tachypnea Abdomen: abdomen soft, non-tender, non-distended, no organomegaly Musculoskeletal: Pulses present and equal in all extremities, no peripheral edema Motor: no focal deficits noted Neurological: Left lower facial paralysis with deficit to light touch. Extremity exam is normal. No ataxia, not aphasic however does have slurred speech, and is mildly dysarthric. Skin: Intact with no visualized rashes Psych: Normal affect and mood ED course: 65-year-old male presents with strokelike symptoms. His symptoms began at 11 AM yesterday. Patient is outside of the TPA window. NIH is 3. Vital signs upon arrival are within acceptable limits. Laboratory evaluation obtained. CBC, coag panel, blood panel is unremarkable. Rotavirus test is negative. CT brain and CT angios the head shows no acute processes. No indication for TPA or thrombectomy at this time. Chest x-ray is nonacute. Patient given aspirin. Patient be admitted for severe vascular accident. Neurology will be consulted. Patient be admitted to Dr. Garcia. EKG interpretation: Ventricular rate 64, normal sinus rhythm, HI interval 140, QRS 90, QTc 453. No HI prolongation, no QTC prolongation, no ST or T-wave changes noted. Overall, this EKG is unremarkable - Related Data Home Medications Medication Instructions Recorded Confirmed Metoprolol Succinate (ER) [Toprol 100 mg PO DAILY 10/25/20 10/25/20 Xl] Phenytoin Sodium Extended 200 mg PO BID 10/25/20 10/25/20 amLODIPine [Norvasc] 10 mg PO DAILY 10/25/20 10/25/20 lisinopriL [Zestril] 20 mg PO DAILY 10/25/20 10/25/20 Allergies Allergy/AdvReac Type Severity Reaction Status Date / Time No Known Allergies Allergy Verified 10/25/20 19:50 Review of Systems ROS Statement: Those systems with pertinent positive or pertinent negative responses have been documented in the HPI. ROS Other: All systems not noted in ROS Statement are negative. Past Medical History Past Medical History: Hypertension, Seizure Disorder History of Any Multi-Drug Resistant Organisms: None Reported Past Surgical History: No Surgical Hx Reported Past Psychological History: No Psychological Hx Reported Smoking Status: Never smoker Past Alcohol Use History: Rare Past Drug Use History: None Reported General Exam Limitations: no limitations Course Vital Signs 10/25/20 18:17 Temperature 98.5 F Pulse Rate 62 Respiratory 20 Rate Blood Pressure 180/98 O2 Sat by Pulse 95 Oximetry Medical Decision Making - Lab Data Result diagrams: 10/25/20 18:29 10/25/20 18:29 Lab Results 10/25/20 10/25/20 10/25/20 Range/Units 18:24 18:29 18:29 WBC 11.8 H (3.8-10.6) k/uL RBC 4.59 (4.30-5.90) m/uL Hgb 14.4 (13.0-17.5) gm/dL Hct 40.6 (39.0-53.0) % MCV 88.4 (80.0-100.0) fL MCH 31.4 (25.0-35.0) pg MCHC 35.5 (31.0-37.0) g/dL RDW 12.8 (11.5-15.5) % Plt Count 280 (150-450) k/uL MPV 7.0 Neutrophils % 77 % Lymphocytes % 16 % Monocytes % 5 % Eosinophils % 1 % Basophils % 0 % Neutrophils # 9.1 H (1.3-7.7) k/uL Lymphocytes # 1.9 (1.0-4.8) k/uL Monocytes # 0.6 (0-1.0) k/uL Eosinophils # 0.1 (0-0.7) k/uL Basophils # 0.0 (0-0.2) k/uL PT 10.6 (9.0-12.0) sec INR 1.0 (<1.2) APTT 22.0 (22.0-30.0) sec Sodium (137-145) mmol/L Potassium (3.5-5.1) mmol/L Chloride (98-107) mmol/L Carbon Dioxide (22-30) mmol/L Anion Gap mmol/L BUN (9-20) mg/dL Creatinine (0.66-1.25) mg/dL Est GFR (CKD-EPI)AfAm (>60 ml/min/1.73 sqM) Est GFR (CKD-EPI)NonAf (>60 ml/min/1.73 sqM) Glucose (74-99) mg/dL POC Glucose (mg/dL) 106 H (75-99) mg/dL POC Glu [facility] Calcium (8.4-10.2) mg/dL Total Bilirubin (0.2-1.3) mg/dL AST (17-59) U/L ALT (4-49) U/L Alkaline Phosphatase (38-126) U/L Troponin I (0.000-0.034) ng/mL Total Protein (6.3-8.2) g/dL Albumin (3.5-5.0) g/dL Coronavirus (PCR) (Not Detectd) 10/25/20 10/25/20 10/25/20 Range/Units 18:29 18:29 18:34 WBC (3.8-10.6) k/uL RBC (4.30-5.90) m/uL Hgb (13.0-17.5) gm/dL Hct (39.0-53.0) % MCV (80.0-100.0) fL MCH (25.0-35.0) pg MCHC (31.0-37.0) g/dL RDW (11.5-15.5) % Plt Count (150-450) k/uL MPV Neutrophils % % Lymphocytes % % Monocytes % % Eosinophils % % Basophils % % Neutrophils # (1.3-7.7) k/uL Lymphocytes # (1.0-4.8) k/uL Monocytes # (0-1.0) k/uL Eosinophils # (0-0.7) k/uL Basophils # (0-0.2) k/uL PT (9.0-12.0) sec INR (<1.2) APTT (22.0-30.0) sec Sodium 136 L (137-145) mmol/L Potassium 3.7 (3.5-5.1) mmol/L Chloride 104 (98-107) mmol/L Carbon Dioxide 24 (22-30) mmol/L Anion Gap 8 mmol/L BUN 11 (9-20) mg/dL Creatinine 0.94 (0.66-1.25) mg/dL Est GFR (CKD-EPI)AfAm >90 (>60 ml/min/1.73 sqM) Est GFR (CKD-EPI)NonAf 85 (>60 ml/min/1.73 sqM) Glucose 109 H (74-99) mg/dL POC Glucose (mg/dL) (75-99) mg/dL POC Glu Lasting Floorworker ID Calcium 8.9 (8.4-10.2) mg/dL Total Bilirubin 0.5 (0.2-1.3) mg/dL AST 39 (17-59) U/L ALT 27 (4-49) U/L Alkaline Phosphatase 69 (38-126) U/L Troponin I <0.012 (0.000-0.034) ng/mL Total Protein 6.6 (6.3-8.2) g/dL Albumin 4.0 (3.5-5.0) g/dL Coronavirus (PCR) Not Detected (Not Detectd) Disposition Clinical Impression: Cerebrovascular accident (CVA) Disposition: ADMITTED IP TO THIS HOSP Condition: Fair Referrals: Paul Nuñez MD [Primary Care Provider] - 1-2 days Decision Time: 20:21
[2020-10-25 18:51] LABS: ALT 27 U/L (4-49); AST 39 U/L (17-59); African American GFR (CKD) >90 (>60 ml/min/1.73 sqM); Alkaline Phosphatase 69 U/L (38-126); Anion Gap 8 mmol/L; Blood Urea Nitrogen 11 mg/dL (9-20); Calcium 8.9 mg/dL (8.4-10.2); Carbon Dioxide 24 mmol/L (22-30); Chloride 104 mmol/L (98-107); Glucose 109 mg/dL (74-99); Non-African American GFR(CKD) 85 (>60 ml/min/1.73 sqM); Potassium 3.7 mmol/L (3.5-5.1); Sodium 136 mmol/L (137-145); Total Bilirubin 0.5 mg/dL (0.2-1.3); Total Protein 6.6 g/dL (6.3-8.2)
[2020-10-25 19:08] LABS: Prothrombin Time 10.6 sec (9.0-12.0)
--- NOTE | 2020-10-25 19:37 | CT ---
EXAMINATION TYPE: CT brain wo con for TPA DATE OF EXAM: 10/25/2020 COMPARISON: 06/11/2019 HISTORY: cva CT DLP: 1096.6 mGycm Automated exposure control for dose reduction was used. There is some cerebral cortical atrophy. There is no mass effect nor midline shift. There is no sign of intracranial hemorrhage. Skull base is intact. There is normal aeration of the mastoid sinuses. IMPRESSION: Cerebral atrophy. No acute intracranial abnormality. No change.
--- NOTE | 2020-10-25 19:44 | XR ---
EXAMINATION TYPE: XR chest 2V DATE OF EXAM: 10/25/2020 COMPARISON: NONE HISTORY: Slurred speech TECHNIQUE: 2 views FINDINGS: There is no heart failure nor confluent pneumonic infiltrate. There are chest leads. Costop hrenic angles are clear. Bony thorax is intact. IMPRESSION: No active cardiopulmonary disease. Normal heart.
--- NOTE | 2020-10-25 20:08 | CT ---
EXAMINATION TYPE: CT angio head neck DATE OF EXAM: 10/25/2020 COMPARISON: None HISTORY: cva CT DLP: 541.1 mGycm Automated exposure control for dose reduction was used. CONTRAST: Performed with IV Contrast, patient injected with 65cc mL of Isovue 370. There are 3-D post processed images. Images obtained from the aortic arch to the vertex of the brain. FINDINGS: There is normal branching pattern of the great vessels on the aortic arch. There is bilateral arteria l flow in the subclavian arteries. There is bilateral arterial flow in the common internal and record changer al carotid arteries. There is wide patency of the carotid artery bifurcations. There is arterial flow in both vertebral arteries. There is arterial flow in the vertebrobasilar yi ry system. There is arterial flow in the anterior middle and posterior cerebral arteries. There is normal contrast opacification of the venous sinuses. I see no intracranial aneurysm or neova scularity. There is no evidence of hemodynamic stenosis. There is no mass effect. IMPRESSION: Negative CT angiogram of the neck. Negative CT angiogram of the brain.
[2020-10-25] MEDS ORDERED: ASPIRIN 325 MG TAB PO STA (20:17)
[2020-10-26] MEDS: PHENYTOIN SODIUM EXTENDED 100 MG CAP PO SCH ×3 (00:12→21:37)
[2020-10-26 04:16] LABS: Cholesterol 205 mg/dL (<200); HDL Cholesterol 37 mg/dL (40-60); LDL Cholesterol,Calculated 155 mg/dL (0-99); Triglycerides 63 mg/dL (<150)
[2020-10-26] MEDS ORDERED: ONDANSETRON 4 MG/2 ML VIAL IVP PRN (04:46)
[2020-10-26] MEDS: SODIUM CHLORIDE 0.9% 1,000 ML IV SCH ×2 (06:21→21:38)
[2020-10-26] MEDS ORDERED: PHENYTOIN SODIUM 200 MG PO SCH (09:00)
[2020-10-26] MEDS: lisinopriL 20 MG TAB PO SCH (09:03)
[2020-10-26] MEDS: METOPROLOL SUCCINATE (ER) 100 MG TAB.ER.24H PO SCH (09:03)
[2020-10-26] MEDS: amLODIPine 10 MG TAB PO SCH (09:03)
--- NOTE | 2020-10-26 11:36 | ECHOF ---
Referral Reason:LVF MEASUREMENTS -------- HEIGHT: 175.3 cm WEIGHT: 76.7 kg BP: IVSd: 1.1 cm (0.6 - 1.1) LVIDd: 3.9 cm (3.9 - 5.3) LVPWd: 1.4 cm (0.6 - 1.1) IVSs: 1.9 cm LVIDs: 2.6 cm LVPWs: 1.7 cm Ao Diam: 3.0 cm (2.0 - 3.7) AV Cusp: 1.7 cm (1.5 - 2.6) LA Diam: 2.5 cm (2.7 - 3.8) MV EXCURSION: 11.453 mm (> 18.000) MV EF SLOPE: 77 mm/s (70 - 150) EPSS: 1.0 cm MV E Willie: 0.86 m/s MV DecT: 228 ms MV A Willie: 0.86 m/s MV E/A Ratio: 1.00 RAP: 5.00 mmHg RVSP: 36.30 mmHg FINDINGS -------- This was a technically good study. The left ventricular size is normal. There is mild concentric left ventricular hypertrophy. Overa ll left ventricular systolic function is normal with, an EF between 55 - 60 %. The diastolic fillin g pattern is normal for the age of the patient 10.02. The right ventricle is normal in size. The left atrial size is normal. Normal LA size by volume 22+/-6 ml/m2. The right atrial size is normal. The aortic valve is trileaflet and appears structurally normal. The mitral valve is normal. There is trace mitral regurgitation. The tricuspid valve appears structurally normal. Trace tricuspid regurgitation present. Right jr tricular systolic pressure is normal at < 35 mmHg. There is no pulmonic regurgitation present. The aortic root size is normal. Normal inferior vena cava with normal inspiratory collapse consistent with estimated right atrial pre ssure of 5 mmHg. There is no pericardial effusion. CONCLUSIONS -------- 1. The left ventricular size is normal. 2. There is mild concentric left ventricular hypertrophy. 3. Overall left ventricular systolic function is normal with, an EF between 55 - 60 %. 4. The diastolic filling pattern is normal for the age of the patient 10.02 5. There is trace mitral regurgitation. 6. Trace tricuspid regurgitation present. 7. There is no pericardial effusion. [employer] MANAGER: Lida Valentin RDCS
--- NOTE | 2020-10-26 13:38 | P.HPIM ---
History of Present Illness H&P Date: 10/26/20 HISTORY OF PRESENT ILLNESS This is a 65-year-old male patient of Dr. Nuñez past medical history of hypertension, seizure disorder since age 17 has been on medications of pheno barbital Dilantin. Patient currently lives alone. History is obtained from the patient and his sister Sabine dacosta. Patient had onset Sunday of lightheadedness he states that he passed out prescription his head. He has no idea how long he was passed out. He had a regularly scheduled appointment with his PCP yesterday and the pressure was quite high in the office and he was detailed to take his medications. Patient apparently has been out of Dilantin for the past 8 days as there was a discrepancy between the numbers previously prescribed. He denies any history of TIA or stroke. He denies having any chest pain. Patient then went to his family's home and had some slurred speech and his face was drooping on the left side and he stated "I feel like I'm going to ." Family checked his blood pressure at home at 205/109. EMS was called and patient was brought into [facility] for evaluation. CAT scan of the brain showed cerebral atrophy. No acute intracranial abnormality. Chest x-ray shows no acute cardiopulmonary process. CT angiogram of the head and neck revealed negative results. EKG is normal sinus rhythm. Echocardiogram reveals EF of 55-60%, trace mitral regurgitation, trace tricuspid regurgitation.blood pressure 201/92, heart rate in the 60s and 70s, afebrile, pulse ox 96% on room air. WBC 11.8, hemoglobin 14.4, platelet count 280. INR 1.0. Sodium 136 otherwise electrolytes are normal, creatinine 0.94. Blood sugar 109. Troponin negative. Coronavirus not detected. Liver function tests normal. Triglycerides 63, cholesterol 205, LDL 155, HDL 37. Patient to be admitted to the cardiac stepdown unit and consult for neurology. Note the patient does not follow with a neurologist that only sees Dr. Nuñez. REVIEW OF SYSTEMS Constitutional: No fever, no chills, no night sweats. No weight change. No weakness, fatigue or lethargy. No daytime sleepiness. EENT: No headache. No blurred vision or double vision, no loss of vision. No loss of Hearing, no ringing in the ears, no dizziness. No nasal drainage or congestion. No epistaxis. No sore throat. Lungs: No shortness of breath, cough, no sputum production. No wheezing. Cardiovascular: No chest pain, no lower extremity edema. No palpitations. No paroxysmal nocturnal dyspnea. No orthopnea. No lightheadedness or dizziness. Reports syncopal episode. Abdominal: No abdominal pain. No nausea, vomiting. No diarrhea. No constipation. No bloody or tarry stools.. No loss of appetite. Genitourinary: No dysuria, increased frequency, urgency. No urinary retention. Musculoskeletal: No myalgias. Reports muscle weakness, no gait dysfunction, no frequent falls. No back pain. No neck pain. Integumentary: No wounds, no lesions. No rash or pruritus. No unusual brui sing. No change in hair or nails. Neurologic: No aphasia. Reports slurred speech. Reports facial droop. No change in mentation. No head injury. No headache. No paralysis. No paresthesia. Psychiatric: No depression. No anxiety. No mood swings. Endocrine: No abnormal blood sugars. SOCIAL HISTORY Patient is a lifelong nonsmoker, and rare alcohol use, and no marijuana or street drug use. He does not have CPAP, oxygen, nebulizer. Patient is . He is living alone. FAMILY HISTORY Father at age 84 from a myocardial infarction. Mother at age 36 from suicide. Patient has 5 siblings with no major medical problems. Patient does not have any children. PHYSICAL EXAMINATION Gen: This is a 65-year-old male. He is sitting up on the ER stretcher and appears to be comfortable. No acute distress noted. HEENT: Head is atraumatic, normocephalic. Pupils equal, round. Sclerae is anicteric. NECK: Supple. No JVD. No lymphadenopathy. No thyromegaly. LUNGS: Clear to auscultation. No wheezes or rhonchi. No intercostal retractions. HEART: Regular rate and rhythm. No murmur. ABDOMEN: Soft. Bowel sounds are present. No masses. No tenderness. EXTREMITIES: No pedal edema. No calf tenderness. NEUROLOGICAL: Patient is awake, alert and oriented x3. Cranial nerves 2 through 12 are grossly intact. Upper and lower extremity strength 5/5. Noted slurred speech which is new for the patient. ASSESSMENT AND PLAN 1. Rule out CVA, TIA versus seizure activity. Patient to be admitted to the cardiac stepdown unit, neurology consult, patient has been resumed on Dilantin 200 mg twice daily. Noted patient has been taken off phenobarb by his PCP. Patient started on aspirin 325 mg daily, atorvastatin 40 mg daily. PT, OT, speech therapy's. 2. Accelerated hypertension. Continue Norvasc 10 mg daily, Toprol-XL 100 mg daily, lisinopril 20 mg daily, and hydralazine 25 mg oral every 6 hours as needed for systolic blood pressure greater than 160. 3. History of seizure disorder. Patient has been taken off phenobarb by his PCP. He did not have Dilantin for the past 8 days due to some type of discrepancy between the date that prescription was written and refill. Continue Dilantin 200 mg twice daily. Neurology consult. Recommended the patient follow with a neurologist following discharge. 4. Syncopal episode with loss of consciousness on Sunday of unknown duration, possible seizure. 5. Hyperlipidemia. Patient will be started on atorvastatin 40 mg daily. 6. GI prophylaxis. Protonix daily. 7. DVT prophylaxis. Heparin subcu. Patient will be admitted to the hospital for a minimum of 2 night stay. DISCHARGE PLAN To be determined. Impression and plan of care have been directed as dictated by the signing physician. Crystal Hernandez nurse practitioner acting as scribe for signing physician. Past Medical History Past Medical History: Hypertension, Seizure Disorder History of Any Multi-Drug Resistant Organisms: None Reported Past Surgical History: No Surgical Hx Reported Past Psychological History: No Psychological Hx Reported Smoking Status: Never smoker Past Alcohol Use History: Rare Past Drug Use History: None Reported Medications and Allergies Home Medications Medication Instructions Recorded Confirmed Type Metoprolol Succinate (ER) [Toprol 100 mg PO DAILY 10/25/20 10/25/20 History Xl] Phenytoin Sodium Extended 200 mg PO BID 10/25/20 10/25/20 History amLODIPine [Norvasc] 10 mg PO DAILY 10/25/20 10/25/20 History lisinopriL [Zestril] 20 mg PO DAILY 10/25/20 10/25/20 History Allergies Allergy/AdvReac Type Severity Reaction Status Date / Time No Known Allergies Allergy Verified 10/25/20 19:50 Physical Exam Vitals: Vital Signs Temp Pulse Resp BP Pulse Ox 10/26/20 09:04 75 16 126/72 94 L 10/26/20 07:33 97 10/26/20 07:16 63 16 153/87 97 10/26/20 06:41 71 15 156/91 95 10/26/20 02:00 65 18 166/83 95 10/26/20 00:14 98.0 F 10/26/20 00:13 72 18 156/86 95 10/25/20 23:39 60 164/83 10/25/20 23:01 62 18 201/92 96 10/25/20 18:17 98.5 F 62 20 180/98 95 Intake and Output 10/25/20 10/26/20 10/26/20 22:59 06:59 14:59 Output Total 1100 Balance -1100 Output: Urine 1100 Other: # Voids 2 Weight 90 kg Results CBC & Chem 7: 10/25/20 18:29 10/25/20 18:29 Labs: Abnormal Lab Results - Last 24 Hours (Table) 10/25/20 10/25/20 10/25/20 Range/Units 18:24 18:29 18:29 WBC 11.8 H (3.8-10.6) k/uL Neutrophils # 9.1 H (1.3-7.7) k/uL Sodium 136 L (137-145) mmol/L Glucose 109 H (74-99) mg/dL POC Glucose (mg/dL) 106 H (75-99) mg/dL Cholesterol (<200) mg/dL LDL Cholesterol, Calc (0-99) mg/dL HDL Cholesterol (40-60) mg/dL 10/26/20 Range/Units 03:45 WBC (3.8-10.6) k/uL Neutrophils # (1.3-7.7) k/uL Sodium (137-145) mmol/L Glucose (74-99) mg/dL POC Glucose (mg/dL) (75-99) mg/dL Cholesterol 205 H (<200) mg/dL LDL Cholesterol, Calc 155 H (0-99) mg/dL HDL Cholesterol 37 L (40-60) mg/dL
--- NOTE | 2020-10-26 16:03 | P.CNNES ---
History of Present Illness Consult date: 10/26/20 Requesting physician: Crystal Hernandez Reason for Consult: possible stroke vs seizure History of Present Illness: This is a 65-year-old gentleman with medical history of epilepsy, hypertension presented emergency department on 10/25/2020 for left facial weakness, slurred speech and dysarthria. History was obtained from the patien's sister (Sabine) who is at bedside and medical record since patient unable to provide all the information. Per the patient's sister the patient desired on his own and it seems that the patient had a fall Sunday night or Sunday night that just past by. Unknown duration of the loss of consciousness. The patient stated that he has a small bump on the right side of the forehead but cannot recall the event. The patient ran out of Dilantin for the last 8 days. The family noticed that the patient had left facial weakness, or speech this past Sunday morning. The patient went to the his family's home and that they noted that he is having some slurring the speech as well as facial droop of the left and he stated that to them that he feels he is going to . Family checks his blood pressure and it was 205/109. She does not have any history of stroke or TIA in the past. Kelly thompson is not on any antiepileptic platelets or statin medications at home. Sister stated that the patient does not have facial droop or slurring the speech with his seizures in the past. Guarding the patient seizure the sister stated that he had febrile seizure as a child then was diagnosed with epilepsy at the age of 17. He has generalized tonic-clonic seizure and has sometimes tongue bite associate with that but no urinary or bowel incontinence. Patient seizures have been controlled for years until this past Sunday or Sunday where he passed out but since he ran out of medication. He is on Dilantin extended release 200 mg 1 tablet twice a day for seizures. In the past the patient was on Dilantin as well as phenobarbital but he was stopped off of phenobarbital by his primary physician about 6-8 months ago. He is being evaluated by a neurologist in the last 6-8 months and he had an EEG but unsure what the EEG report. He said in the past he followed up with Dr. Smith but he's not sure exactly was his current neurologist that he is following up with that. He states that he had seizures since the age of 17 and the he has been on phenobarbital and Dilantin at home. Upon looking at the patient home medication the patient on Dilantin ER 200 mg 1 tablet twice a day for his seizure Workup in our facility consisted of: She'll vital signs his blood pressure of 180/98 and the repeat it is 201/92. Heart rate of 62, temperature of 98.5 Fahrenheit oral, respiratory of 20 and the pulse ox of 95% room air. CT of the head is reported as cerebral atrophy. No acute intracranial abn ormality. No change CT angiography of the head and neck is reported as negative for both 2-D echo was reported as mild concentric left ventricular hypertrophy. Ejection fraction of 55-60%. Left atrial size is normal. EKG is reported as normal sinus rhythm. Nonspecific ST abnormality. Abnormal E KG. White blood cell is 11.8 which is slightly elevated Lipid panel: Triglyceride 63, cholesterol is 205, LDLs 155, HDL is 37. Review of Systems Review of system: The 12 point system was reviewed and apparent positive and negative per HPI. Past Medical History Past Medical History: Hypertension, Seizure Disorder Additional Past Medical History / Comment(s): Last seizure 10/24/20. History of Any Multi-Drug Resistant Organisms: None Reported Past Surgical History: No Surgical Hx Reported Past Anesthesia/Blood Transfusion Reactions: Unable to Obtain Additional Past Anesthesia/Blood Transfusion Reaction / Comment(s): Pt has never had anesthesia. Past Psychological History: No Psychological Hx Reported Smoking Status: Never smoker Past Alcohol Use History: Rare Past Drug Use History: None Reported - Past Family History Father Family Medical History: Congestive Heart Failure (CHF), Osteoarthritis (OA), Rheumatoid Arthritis (RA) Mother Additional Family Medical History / Comment(s): ulcer Medications and Allergies Home Medications Medication Instructions Recorded Confirmed Type Metoprolol Succinate (ER) [Toprol 100 mg PO DAILY 10/25/20 10/25/20 History Xl] Phenytoin Sodium Extended 200 mg PO BID 10/25/20 10/25/20 History amLODIPine [Norvasc] 10 mg PO DAILY 10/25/20 10/25/20 History lisinopriL [Zestril] 20 mg PO DAILY 10/25/20 10/25/20 History Allergies Allergy/AdvReac Type Severity Reaction Status Date / Time No Known Allergies Allergy Verified 10/25/20 19:50 Physical Examination - Vital Signs Vital Signs: Vital Signs Temp Pulse Pulse Resp BP BP Pulse Ox 10/26/20 12:00 97.8 F 70 16 172/99 93 L 10/26/20 09:04 75 16 126/72 94 L 10/26/20 07:33 97 10/26/20 07:16 63 16 153/87 97 10/26/20 06:41 71 15 156/91 95 10/26/20 02:00 65 18 166/83 95 10/26/20 00:14 98.0 F 10/26/20 00:13 72 18 156/86 95 10/25/20 23:39 60 164/83 10/25/20 23:01 62 18 201/92 96 10/25/20 18:17 98.5 F 62 20 180/98 95 Intake and Output 10/25/20 10/26/20 10/26/20 22:59 06:59 14:59 Intake Total 240 Output Total 1100 400 Balance -1100 -160 Intake: Oral 240 Output: Urine 1100 400 Other: # Voids 2 Weight 90 kg 90 kg GENERAL: The patient is lying in bed and is not in acute distress. CHEST: The heart rate is regular rate rhythm. No murmurs to auscultation. No carotid bruit bilaterally. LUNG: Clear to auscultation bilaterally no wheezing noted throughout. Not labored breathing. ABDOMEN/GI: Bowel sounds present in all 4 quadrants. No tenderness to palpation throughout. NEUROLOGICAL: Higher mental function: The patient is awake, alert, oriented to self, place and time. He is able to name objects correctly (pen, watch and cup). He is following simple commands but seems somewhat slow to comprehend things. No aphasia and no neglect. Cranial nerves: The pupils are round, equal and reactive to light and accommodation. Visual barbosa are full to confrontation throughout. Extraocular movement is intact no nystagmus is noted. Facial sensation is normal to touch throughout. Mild lower Left facial droop. Hearing is hard to assess because of cooperation. Tongue is midline and moved [id number] without any difficulty. Mild dysarthria is noted. Shoulder shrug is normal bilaterally. Motor: Gait is normal. The strength is 5 over 5 throughout. Normal tone and bulk. Cerebellum: Normal finger to nose bilaterally. Sensation: Sensation is normal to touch throughout. Reflexes (right/left): 3+ in uppers and lowers except biceps and ankles are 2+ bilaterally. Plantars are downgoing bilaterally. Results Patient sodium is 136 which is slightly low. POC glucose is 106. Calcium is 8.9 which is normal. [place] virus PCR is nondetected - Laboratory Findings CBC and BMP: 10/25/20 18:29 10/25/20 18:29 Abnormal Lab Findings: Abnormal Labs 10/25/20 10/25/20 10/25/20 18:24 18:29 18:29 WBC 11.8 H Neutrophils # 9.1 H Sodium 136 L Glucose 109 H POC Glucose (mg/dL) 106 H Cholesterol LDL Cholesterol, Calc HDL Cholesterol 10/26/20 03:45 WBC Neutrophils # Sodium Glucose POC Glucose (mg/dL) Cholesterol 205 H LDL Cholesterol, Calc 155 H HDL Cholesterol 37 L Assessment and Plan Assessment: This is a 65-year-old gentleman that presented to the emergency department on 10/25/2020 since patient had the left facial droop, slurring the speech and numbness since this past Sunday/Sunday. He also has history of epilepsy and he ran out of his Dilantin the for last 8 days and had episode of passing out this past Sunday night or Sunday. Episode of transient left facial droop, numbness and slurring. Seems likely acute ischemic stroke. Unlikely seizure (since never had episode of seizure like with facial droop and dysarthria in past). t Recent break-through seizure since ran out of medication for 8 days (Dilantin) History of Epilepsy Hypertension Dyslipidemia Plan: CT of the head is reported as cerebral atrophy. No acute intracranial abnorm ality. No change CT angiography of the head and neck is reported as negative for both 2-D echo was reported as mild concentric left ventricular hypertrophy. Ejection fraction of 55-60%. Left atrial size is normal. Lipid panel: Triglyceride 63, cholesterol is 205, LDLs 155, HDL is 37. The patient was given aspirin 325 once in the ED then was started on 325 daily. I will lower the aspirin from 325 mg to 81 mg (and will not start him on dual antiplatelet since increase risk of bleeding and he has history of seizure to prevent bleed). I started the patient on Lipitor 40 mg daily I ordered MRI Brain. Patient was placed on cardiac monitoring and that is to be continued PT, OT and CYLINDER DIE MACHINE OPERATOR are consulted. There is no need for an EEG since the patient already has history of seizures and that we'll not exchange operator (he had routine EEG by a neurologist 6-8 months ago but unknown finding). He was restarted on his Dilantin ER 200 mg 1 tablet twice a day. I ordered Dilantin free and total levels. Regarding management of uncontrolled hypertension recommend slowly titrating the blood pressure and avoiding more than 15% drop in the 24 hours to avoid the any acute ischemia. We'll defer the management to the primary team. Upon discharge, the patient needs to follow-up with his neurologists within 1-2 weeks. The plan is discussed with the patient's sister (Sabine) who is at bedside and patient's nurse. Thank you for the consultation. Dragan Hough MD Neuro-Hospitalist Time with Patient: Greater than 30
[2020-10-26] MEDS: hydrALAZINE HCL 25 MG TAB PO PRN ×2 (17:14→21:37)
[2020-10-26] MEDS ORDERED: ASPIRIN 325 MG TAB PO SCH (20:20)
[2020-10-26] MEDS ORDERED: ATORVASTATIN 40 MG TAB PO SCH (21:00)
[2020-10-26] MEDS: HEPARIN SODIUM,PORCINE 5,000 UNIT/ML 1 ML VIAL SQ SCH (21:37)
[2020-10-27] MEDS: hydrALAZINE HCL 25 MG TAB PO PRN (03:23)
[2020-10-27] MEDS ORDERED: PANTOPRAZOLE 40 MG TABLET PO SCH (07:30)
[2020-10-27 08:07] LABS: Cholesterol 213 mg/dL (<200); HDL Cholesterol 39 mg/dL (40-60); LDL Cholesterol,Calculated 155 mg/dL (0-99); Triglycerides 97 mg/dL (<150)
[2020-10-27] MEDS: amLODIPine 10 MG TAB PO SCH (08:44)
[2020-10-27] MEDS: HEPARIN SODIUM,PORCINE 5,000 UNIT/ML 1 ML VIAL SQ SCH (08:44)
[2020-10-27] MEDS: METOPROLOL SUCCINATE (ER) 100 MG TAB.ER.24H PO SCH (08:44)
[2020-10-27] MEDS: lisinopriL 20 MG TAB PO SCH (08:44)
[2020-10-27] MEDS: PHENYTOIN SODIUM EXTENDED 100 MG CAP PO SCH (08:45)
[2020-10-27 08:49] VITALS: RESP 16
[2020-10-27] MEDS ORDERED: ASPIRIN 81 MG PO SCH (09:00)
--- NOTE | 2020-10-27 10:19 | MR ---
EXAMINATION TYPE: MR brain wo con DATE OF EXAM: 10/27/2020 COMPARISON: CT brain 2 days ago. HISTORY: Stroke: left facial droop and dysarthria TECHNIQUE: Multiplanar, multisequence imaging of the brain and brainstem is performed without IV cont rast. FINDINGS: Diffusion weighted images demonstrate no evidence of a recent infarct or other diffusion abnormality. There is mild ventricular and sulcal prominence. Some scattered foci of T2 intensity are seen through out the white matter bilaterally. T2 Star weighted images show no suspicious intraparenchymal blood p roduct. Midline structures demonstrate normal morphology. The craniocervical junction appears within normal limits. Normal vascular flow voids are present. The visualized sinuses are clear and the globes are i ntact. IMPRESSION: No MRI evidence for recent infarct. Mild diffuse cerebral atrophy and chronic small vesse l ischemic change is confirmed..
--- NOTE | 2020-10-27 10:57 | P.DS ---
Providers Date of admission: 10/25/20 20:20 Expected date of discharge: 10/27/20 Attending physician: Alban Garcia Consults: 10/26/20 13:30 Consult Physician Routine Consulting Provider: Dragan Hough Consult Reason/Comments: CVA, seizure Do you want consulting provider notified?: Yes Primary care physician: [facility] Hospital Course: HISTORY OF PRESENT ILLNESS This is a 65-year-old male patient of Dr. Nuñez past medical history of hypertension, seizure disorder since age 17 has been on medications of phenobarbital Dilantin. Patient currently lives alone. History is obtained from the patient and his sister Sabine dacosta. Patient had onset Sunday of lightheadedness he states that he passed out prescription his head. He has no idea how long he was passed out. He had a regularly scheduled appointment with his PCP yesterday and the pressure was quite high in the office and he was detailed to take his medications. Patient apparently has been out of Dilantin for the past 8 days as there was a discrepancy between the numbers previously prescribed. He denies any history of TIA or stroke. He denies having any chest pain. Patient then went to his family's home and had some slurred speech and his face was drooping on the left side and he stated "I feel like I'm going to ." Family checked his blood pressure at home at 205/109. EMS was called and patient was brought into [facility] for evaluation. CAT scan of the brain showed cerebral atrophy. No acute intracranial abnormality. Chest x-ray shows no acute cardiopulmonary process. CT angiogram of the head and neck revealed negative results. EKG is normal sinus rhythm. Echocardiogram reveals EF of 55-60%, trace mitral regurgitation, trace tricuspid regurgitation.blood pressure 201/92, heart rate in the 60s and 70s, afebrile, pulse ox 96% on room air. WBC 11.8, hemoglobin 14.4, platelet count 280. INR 1.0. Sodium 136 otherwise electrolytes are normal, creatinine 0.94. Blood sugar 109. Troponin negative. Coronavirus not detected. Liver function tests normal. Trigl ycerides 63, cholesterol 205, LDL 155, HDL 37. Patient to be admitted to the cardiac stepdown unit and consult for neurology. Note the patient does not follow with a neurologist that only sees Dr. Nuñez. 10/27: MRI of the brain was negative for acute or subacute ischemic stroke. He should've his mental status, speech is back to baseline. Neurology has recommended aspirin 81 mg daily, Lipitor 40 mg daily and continue Dilantin 200 mg twice daily. Patient is requesting the prescription be sent to [facility] pharmacy at the hospital. Patient's sister states that he will be following up with Dr. Smith as an outpatient. Patient has been cleared for discharge by neurology. He has been afebrile, heart rate 71, blood pressure 160/81, pulse ox 95% on room air. Prior to discharge, lisinopril will be increased to be continued at home. Patient will be discharged home today in stable condition. ASSESSMENT AND PLAN 1. TIA 2. Accelerated hypertension. 3. Breakthrough seizure 4. History of seizure disorder. 5. Syncopal episode with loss of consciousness on Sunday of unknown duration, possible seizure. 6. Hyperlipidemia. DISCHARGE PLAN Home Impression and plan of care have been directed as dictated by the signing physician. Crystal Hernandez nurse practitioner acting as scribe for signing physician. Patient Condition at Discharge: Good Plan - Discharge Summary Discharge Rx Participant: No New Discharge Prescriptions: New Aspirin 81 mg PO DAILY chew Atorvastatin [Lipitor] 40 mg PO HS #30 tab lisinopriL [Zestril] 40 mg PO DAILY #30 tablet Continue amLODIPine [Norvasc] 10 mg PO DAILY Metoprolol Succinate (ER) [Toprol XL] 100 mg PO DAILY Phenytoin Sodium Extended 200 mg PO BID #60 cap Discontinued lisinopriL [Zestril] 20 mg PO DAILY Discharge Medication List Metoprolol Succinate (ER) [Toprol XL] 100 mg PO DAILY 10/25/20 [History] amLODIPine [Norvasc] 10 mg PO DAILY 10/25/20 [History] Aspirin 81 mg PO DAILY chew 10/27/20 [Rx] Atorvastatin [Lipitor] 40 mg PO HS #30 tab 10/27/20 [Rx] Phenytoin Sodium Extended 200 mg PO BID #60 cap 10/27/20 [Rx] lisinopriL [Zestril] 40 mg PO DAILY #30 tablet 10/27/20 [Rx] Follow up Appointment(s)/Referral(s): Judy Smith MD [REFERRING] - 1 Week (office will call u with an appt.) Paul Nuñez MD [Primary Care Provider] - 11/03/20 10:00 am Patient Instructions/Handouts: Epilepsy (DC) Discharge Disposition: HOME SELF-CARE
[2020-10-27 12:01] VITALS: BP 168/81; PULSE 71; TEMP 98.6
--- NOTE | 2020-10-27 13:11 | P.PN ---
Subjective Progress Note Date: 10/27/20 The patient was seen at bedside and he is accompanied with his sister and she stated that he sounds a lot better today compared to yesterday. He has minimal facial droop that she feels is a residual bother than that he is back to his baseline. MRI of the brain was negative for acute or subacute ischemic stroke. Objective - Vital Signs Vital signs: Vital Signs Temp 98.6 F 10/27/20 12:00 Pulse 71 10/27/20 12:00 Resp 16 10/27/20 12:00 BP 168/81 10/27/20 12:00 Pulse Ox 95 10/27/20 12:00 Intake & Output 10/26/20 10/27/20 10/27/20 18:59 06:59 18:59 Intake Total 476 237 Output Total 400 550 Balance 76 -550 237 Weight 90 kg 84.1 kg Intake: Oral 476 237 Output: Urine 400 550 Other: Voiding Method Toilet Toilet Urinal Urinal # Voids 1 0 # Bowel Movements 0 - Exam GENERAL: The patient is lying in bed and is not in acute distress. NEUROLOGICAL: Higher mental function: The patient is awake, alert, oriented to self, place and time. He is able to name objects correctly (pen, watch and cup). He is following simple commands but seems somewhat slow to comprehend things. No aphasia and no neglect. Cranial nerves: The pupils are round, equal and reactive to light and accommodation. Visual barbosa are full to confrontation throughout. Extraocular movement is intact no nystagmus is noted. Facial sensation is normal to touch throughout. Mild lower Left facial droop. Hearing is hard to assess because of cooperation. Tongue is midline and moved [id number] without any difficulty. No dysarthria is noted. Shoulder shrug is normal bilaterally. Motor: Gait is normal. The strength is 5 over 5 throughout. Normal tone and bulk. Cerebellum: Normal finger to nose bilaterally. Sensation: Sensation is normal to touch throughout. Reflexes (right/left): 3+ in uppers and lowers except biceps and ankles are 2+ bilaterally. Plantars are downgoing bilaterally. - Labs CBC & Chem 7: 10/25/20 18:29 10/25/20 18:29 Labs: Abnormal Lab Results - Last 24 Hours (Table) 10/26/20 10/27/20 Range/Units 16:07 07:34 Cholesterol 213 H (<200) mg/dL LDL Cholesterol, Calc 155 H (0-99) mg/dL HDL Cholesterol 39 L (40-60) mg/dL Free Phenytoin <0.8 L (0.8-2.0) ug/mL Assessment and Plan Assessment: This is a 65-year-old gentleman that presented to the emergency department on 10/25/2020 since patient had the left facial droop, slurring the speech and numbness since this past Sunday/Sunday. He also has history of epilepsy and he ran out of his Dilantin the for last 8 days and had episode of passing out this past Sunday night or Sunday. Episode of transient left facial droop, numbness and slurring. Is likely transient ischemic attack. Unlikely seizure (since never had episode of seizure like with facial droop and dysarthria in past). Recent break-through seizure since ran out of medication for 8 days (Dilantin) History of Epilepsy Hypertension Dyslipidemia Plan: CT of the head is reported as cerebral atrophy. No acute intracranial abnormality. No change CT angiography of the head and neck is reported as negative for both 2-D echo was reported as mild concentric left ventricular hypertrophy. Ejection fraction of 55-60%. Left atrial size is normal. Lipid panel: Triglyceride 63, cholesterol is 205, LDLs 155, HDL is 37. Continue aspirin 81 mg (and will not start him on dual antiplatelet since increase risk of bleeding and he has history of seizure to prevent bleed). Continue Lipitor 40 mg daily MRI of the brain was negative for acute or subacute ischemic stroke. Patient was placed on cardiac monitoring and that is to be continued PT, OT and [employer] are consulted. There is no need for an EEG since the patient already has history of seizures and that we'll not change analyst (he had routine EEG by a neurologist 6-8 months ago but unknown finding). He was restarted on his Dilantin ER 200 mg 1 tablet twice a day. Free Dilantin was less than 0.8 and total Dilantin level was less than 3 they're both very subtherapeutic but its that because the patient ran out of the medication for 8 days. Regarding management of uncontrolled hypertension recommend slowly titrating the blood pressure and avoiding more than 15% drop in the 24 hours to avoid the any acute ischemia. We'll defer the management to the primary team. Upon discharge, the patient needs to follow-up with his neurologists within 1-2 weeks (His sister stated he will follow-up with Dr. Smith). There is no further workup from a neurological perspective. The plan is discussed with the patient's sister (Sabine) who is at bedside and patient's nurse. Dragan Hough MD Neuro-Hospitalist Time with Patient: Less than 30
[2020-10-27] MEDS ORDERED: lisinopriL 20 MG TAB PO STA (13:31)
[2020-10-28] MEDS ORDERED: lisinopriL 20 MG TAB PO SCH (09:00)
== END 2020-10-27 16:35 | disposition home or self-care (01) | DRG 69 ==
LOC: EC 18:15 → 3SCARD 20:20
PROVIDERS: ADMIT Internal Medicine Geriatric Medicine; ATTEND Internal Medicine Geriatric Medicine
DX: G45.9 Transient cerebral ischemic attack, unspecified (principal); I10 Essential (primary) hypertension; G40.909 Epilepsy, unspecified, not intractable, without status epilepticus; E78.5 Hyperlipidemia, unspecified; W19.XXXA Unspecified fall, initial encounter; Z79.899 Other long term (current) drug therapy; Z82.0 Family history of epilepsy and other diseases of the nervous system; Z82.49 Family history of ischemic heart disease and other diseases of the circulatory system
CPT/HCPCS: 36415; 70450; 70496; 70498; 70551; 71046; 80053; 80061; 80185; 80186; 84484; 85025; 85610; 85730; 87635; 93005; 93306

== ENCOUNTER → 2023-12-11 | Outpatient (CLI) | payer MEDICARE ==
[2023-12-11 14:50] LABS: Basophils # (A) 0.04 X 10*3/uL (0.00-0.10); Basophils % (A) 0.5 %; Eosinophils # (A) 0.15 X 10*3/uL (0.04-0.35); HCT 44.9 % (39.6-50.0); HGB 14.6 g/dL (13.0-17.0); Lymphocytes # (A) 1.86 X 10*3/uL (0.90-5.00); Lymphocytes % (A) 24.7 %; MCH 29.8 pg (27.0-32.0); MCHC 32.5 g/dL (32.0-37.0); MCV 91.6 FL (80.0-97.0); Mean Platelet Volume 9.4 FL (9.5-12.2); Monocytes # (A) 0.58 X 10*3/uL (0.20-1.00); Monocytes % (A) 7.7 %; NRBC Per 100 WBC 0 X 10*3/uL (0.00-0.01); Neutrophils # (A) 4.87 X 10*3/uL (1.80-7.70); Neutrophils % (A) 64.7 %; Platelet Count 307 X 10*3/uL (140-440); RDW 13.3 % (11.5-14.5); WBC 7.53 X 10*3/uL (4.50-10.00)
[2023-12-11 16:08] LABS: ALT 25 U/L (10-49); AST 26 U/L (14-35); Albumin 4.5 g/dL (3.8-4.9); Albumin/Globulin Ratio 2.05 Ratio (1.60-3.17); Alkaline Phosphatase 105 U/L (41-126); BUN/Creat Ratio 12.36 Ratio (12.00-20.00); Blood Urea Nitrogen 13.6 mg/dL (9.0-27.0); Calcium 9.4 mg/dL (8.7-10.3); Carbon Dioxide 24.3 mmol/L (21.6-31.8); Chloride 104 mmol/L (96-109); Chol/HDL Ratio 4.55 Ratio; Globulin 2.2 g/dL (1.6-3.3); Glucose 97 mg/dL (70-110); LDL Cholesterol,Calculated 132.3 mg/dL (0.0-131.0); Potassium 4.8 mmol/L (3.5-5.5); Sodium 139 mmol/L (135-145); Total Bilirubin 0.3 mg/dL (0.3-1.2); Total Protein 6.7 g/dL (6.2-8.2)
== END | disposition home or self-care (01) ==
LOC: LABWHC1 08:26
PROVIDERS: ATTEND Internal Medicine Geriatric Medicine
DX: G40.909 Epilepsy, unspecified, not intractable, without status epilepticus (principal); I49.9 Cardiac arrhythmia, unspecified; E78.2 Mixed hyperlipidemia; R73.9 Hyperglycemia, unspecified
CPT/HCPCS: 36415; 80053; 80061; 83036; 84443; 85025